=== PATIENT | male | born 2000 | race Caucasian/White ===

== ENCOUNTER → 2021-10-16 10:50 | Outpatient (BNVA) | payer BC, SELFPAY | PROVIDERS: Family Provider Pediatrics; PCP Pediatrics; Visit Provider Nurse Practitioner Family | DX: M25.512 Pain in left shoulder (principal) | CPT/HCPCS: 73030 ==

== ENCOUNTER 2024-07-12 15:15 | Outpatient (CLI) | payer BC, SELFPAY ==
--- NOTE | 2024-07-12 15:19 | US_ITS ---
WS: [id number] Ultrasound abdomen, limited. History: RIGHT lower quadrant pain. Comparison: None. Ultrasound is directed to the RIGHT lower quadrant in the area of pain. Normal peristalsing loops of bowel. No inflammatory or hypervascular mass or free fluid. No inflammatory mass or collection is not ed in the RIGHT lower quadrant. There is a tiny amount of free fluid in the RIGHT lower quadrant. Per istalsing normal loops of bowel are identified. US/US appendix [id number] IMPRESSION: No ultrasound evidence for appendicitis. If there is continued concern for appe ndicitis consider follow-up CT abdomen and pelvis with IV contrast.
== END 2024-07-12 15:16 | disposition home or self-care (01) ==
LOC: RAD 15:19
PROVIDERS: Family Provider Pediatrics; PCP Nurse Practitioner Family; Visit Provider Nurse Practitioner Family
DX: R10.31 Right lower quadrant pain (principal)
CPT/HCPCS: 76705